=== PATIENT | male | born 1970 | race Caucasian/White ===

== ENCOUNTER 2019-10-20 10:22 | Outpatient (CLI) | payer BC, OTHER, SELFPAY ==
--- NOTE | 2019-10-20 | US_ITS ---
WS: [id number] RIGHT UPPER QUADRANT ULTRASOUND HISTORY: ELEVATED LIVER ENZYMES COMPARISON: 12/19/2012 Liver: 17.6 cm in length. Moderately enlarged liver. The entire liver is poorly visualized. There is marked attenuation from hepatic steatosis. Study is not adequate to exclude mass or bile duct dilatat ion. Gallbladder: Normally distended gallbladder with no stones or wall thickening. CBD: 3.0 mm Pancreas: Pancreas is not visualized well. Right kidney: 13.3 cm in length. Normal echogenicity with no mass or hydronephrosis. Aorta and IVC: Unremarkable. No ascites. US/US abdomen limited 66890 IMPRESSION: 1. Technically difficult RIGHT upper quadrant ultrasound. 2. Moderate hepatomegaly with severe hepatic steatosis. 3. Normal gallbladder.
== END 2019-10-20 10:23 | disposition home or self-care (01) ==
PROVIDERS: Family Provider Family Medicine; PCP Family Medicine; Visit Provider Nurse Practitioner Family
DX: K76.0 Fatty (change of) liver, not elsewhere classified (principal); R74.8 Abnormal levels of other serum enzymes

== ENCOUNTER 2021-10-02 09:12 | Outpatient (CLI) | payer OTHER, SELFPAY ==
[2021-10-01 07:07] VITALS: BP 149/99; PULSE 62; RESP 18; TEMP 36.9; O2SAT 95
[2021-10-02 07:07] VITALS: BP 162/95; PULSE 86; RESP 18; TEMP 36.9; O2SAT 99
[2021-10-02 09:37] VITALS: BMI 40.8
[2021-10-02 10:35] VITALS: BP 159/94; PULSE 61; RESP 16; TEMP 36.9; O2SAT 95
[2021-10-02 11:35] VITALS: BP 147/94; PULSE 63; RESP 18; TEMP 36.7; TEMP 36.8; O2SAT 97
== END 2021-10-02 09:13 | disposition home or self-care (01) ==
LOC: OPS 09:13
PROVIDERS: PCP Family Medicine; Visit Provider Nurse Practitioner
DX: U07.1 COVID-19 (principal)
CPT/HCPCS: 96365

== ENCOUNTER 2022-07-10 22:54 | Emergency (ER) | payer OTHER, SELFPAY ==
[2022-07-10 22:57] VITALS: BP 225/125; PULSE 96; RESP 18; TEMP 37.2; O2SAT 99; BMI 40.6
--- NOTE | 2022-07-10 23:07 | ECG_ITS ---
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 Measurements Intervals [place] Rate: 87 P: 63 OR: 155 QRS: 30 QRSD: 98 T: -8 QT: 387 QTc: 466 Interpretive Statements SINUS RHYTHM NONSPECIFIC ST & T-WAVE ABNORMALITY No previous ECG available for comparison Electronically Signed On 07-11-2022 19:27:12 CDT by Reddy Lyles M.D. [id number]
--- NOTE | 2022-07-10 23:16 | ED_ITS ---
HPI - General Adult General: Chief complaint: General Medical Stated complaint: High Blood Pressure Time Seen by Provider: 07/10/22 23:11 Source: patient Mode of arrival: ambulatory Limitations: no limitations History of Present Illness: 51-year-old male who has a history of hypertension he states he took lisinopril today and states he checked his blood pressure tonight and it was in the 200s. He states he became quite anxious and concerned over this he has no pain he denies headache he denies chest pain he denies any worsening improving factors. He denies any vomiting or diarrhea. Associated symptoms: Deny chest pain, dyspnea, headache(s), nausea, rash or vomiting Review of Systems Const: Denies: fever(s), chills, body aches or change in appetite Eyes: Denies: blurry vision or eye discomfort ENMT: Denies: throat pain or dental pain Card: Denies: chest pain Resp: Denies: dyspnea GI: Denies: abdominal pain, nausea, vomiting or diarrhea : Denies: dysuria Musc: Denies: neck pain or back pain Skin/Breast: Denies: rash Neuro: Denies: headache(s) Psych: Denies: depression Valentin/Lymph: Denies: easy bruising All/Imm: Denies: urticaria PFSH ED PFSH: Medical History (Updated 07/11/22 @ 00:00 by Lorin Justice MD) Hypertension Social History Smoking and tobacco status: never smoked Physical Exam Const: COMMON NORMALS: no acute distress, patient oriented x3 and healthy appearing HENMT: COMMON NORMALS: normocephalic and atraumatic HEAD & SCALP: normocephalic and atraumatic Eye: COMMON NORMALS: Equal, round and reactive pupils present and EOMs intact bilaterally PUPIL: Yes Equal, round and reactive pupils present Neck/C-Spine: COMMON NORMALS: full ROM and supple Chest: COMMONS NORMALS: normal inspection of the chest and normal palpation of entire chest wall Resp: COMMON NORMALS: normal respiratory effort, No retractions, No use of accessory muscles and clear to auscultation bilaterally AUSCULTATION: clear to auscultation bilaterally Cardio: COMMON NORMALS: regular rate, regular rhythm and No murmurs present (Cardio) RATE: regular rate RHYTHM: regular rhythm GI: COMMON NORMALS: Normal to inspection, nondistended, normoactive bowel sounds present, Soft to palpation, non-tender and no masses PALPATION: Yes Soft to palpation Extremity: COMMON NORMALS: normal to inspection and full ROM Neuro: COMMON NORMALS: patient oriented x3, moves all extremities and no focal motor deficits Psych: COMMON NORMALS: mental status grossly normal, Normal thought process present and cooperative THOUGHT PROCESS: Normal thought process present Skin: COMMON NORMALS: no rashes or lesions noted and no wounds GENERAL SKIN EXAM: no rashes or lesions noted Course Vital Signs: Vital signs: Vital Signs Temperature 99.0 F 07/10/22 22:57 Pulse Rate 62 07/11/22 00:04 Respiratory Rate 18 07/10/22 22:57 Blood Pressure 165/97 07/11/22 00:04 Pulse Oximetry 99 07/11/22 00:04 Oxygen Delivery Me thod 07/10/22 22:57 MDM - General Adult Medical Decision Making Patient presents here with hypertension his blood pressure here is improved blood work EKG are normal. We will place him on metoprolol and with his lisino pril he is to follow-up with PCP and return if worsening. Lab Data : 07/10/22 23:21 07/10/22 23:21 Laboratory Results WBC 5.7 10^3/uL (4.0-10.0) 07/10/22 23: RBC 5.08 10^6/uL (4.1-5.3) 07/10/22 23:21 Hgb 15.5 g/dL (11.7-16.6) 07/10/22 23: Hct 45.3 % (42.0-52.0) 07/10/22 23:21 MCV 89.2 fl (80-94) 07/10/22 23:21 MCH 30.5 pg (28.0-34.0) 07/10/22 23: MCHC 34.2 g/dL (30.0-36.0) 07/10/22 23:21 RDW 13.1 % (12.1-15.1) 07/10/22 23:21 Plt Count 127 10^3/cmm (130-400) L 07/10/22 23:21 MPV 13.1 fL (7.4-10.4) H 07/10/22 23:21 Neut % (Auto) 40.5 % 07/10/22 23:21 Lymph % (Auto) 45.2 % 07/10/22 23:21 Gaston % (Auto) 10.9 % 07/10/22 23:21 Eos % (Auto) 2.5 % 07/10/22 23:21 Baso % (Auto) 0.7 % 07/10/22 23:21 Neut # (Auto) 2.30 10^3/uL (1.8-7.7) 07/10/22 23:21 Lymph # (Auto) 2.6 10^3/uL (0.8-4.8) 07/10/22 23:21 Gaston # (Auto) 0.6 10^3/uL (0.2-0.9) 07/10/22 23:21 Eos # (Auto) 0.1 10^3/uL (0.0-0.8) 07/10/22 23:21 Baso # (Auto) 0.0 10^3/uL (0.0-0.1) 07/10/22 23:21 Nucleated RBC % (auto) 0 % 07/10/22 23:21 Nucleated RBCs # 0.0 /100WBC 07/10/22 23:21 Sodium 139 mmol/L (136-145) 07/10/22 23:21 Potassium 3.5 mmol/L (3.5-5.1) 07/10/22 23:21 Chloride 101 mmol/L (98-107) 07/10/22 23:21 Carbon Dioxide 26 mmol/L (22-29) 07/10/22 23:21 Anion Gap 15.5 (5-19) 07/10/22 23:21 BUN 10 mg/dL (6-20) 07/10/22 23:21 Creatinine 0.9 mg/dL (0.7-1.2) 07/10/22 23:21 GFR Calculation 89.7 mL/min (90-130) L 07/10/22 23:21 Glucose 130 mg/dL (65-115) H 07/10/22 23:21 Calculated Osmolality 289 mOsm/kg (285-295) 07/10/22 23:21 Calcium 9.3 mg/dL (8.5-10.5) 07/10/22 23:21 Total Bilirubin 0.5 mg/dL (0.15-1.2) 07/10/22 23:21 AST 33 U/L (0-40) 07/10/22 23:21 ALT 68 U/L (0-41) H 07/10/22 23:21 Alkaline Phosphatase 101 U/L (40-130) 07/10/22 23:21 Total Protein 7.8 g/dL (6.6-8.7) 07/10/22 23:21 Albumin 4.7 g/dL (3.5-5.2) 07/10/22 23:21 Globulin 3.1 g/dL (1.3-4.6) 07/10/22 23:21 EKG Data EKG 1: I personally reviewed and interpreted this EKG as follows: EKG interpretation date: 07/10/22 EKG interpretation time: 23:16 Interpretation: nsr hr [address] or t wave abnormalities qrs 98 qtc 431 Discharge Plan Discharge Patient Disposition: Home Clinical Impression: Hypertension Condition: Stable Prescriptions: New metoprolol succinate 25 mg capsule,sprinkle,ER 24hr 25 mg PO DAILY Qty: 30 0RF No Action lisinopril 10 mg tablet 10 mg PO BID ondansetron 4 mg tablet,disintegrating 4 mg PO Q8H PRN (Reason: nausea and vomiting) Qty: 14 0RF meclizine 12.5 mg tablet 12.5 mg PO BID PRN (Reason: dizziness) Qty: 14 0RF Discharge Orders: Discharge ED (Routine); Ordered 07/11/22 Ordered By: Lorin Justice Referrals: Sukhi Vo MD [Primary Care Provider] - 1-3 days Discharge Diet: Advance as tolerated Discharge Activity: Resume usual activity Patient Instructions: Hypertension (ED) Coding Level of Care Code ED Religious Healer for Chg Fwd Exam Comprehensive
[2022-07-10] MEDS: labetalol 5 mg/mL SDV 20mL 10 MG IVP (23:22)
[2022-07-10 23:27] LABS: Basophils % 0.7 %; Eosinophils # 0.1 10^3/uL (0.0-0.8); Eosinophils % 2.5 %; Hematocrit 45.3 % (42.0-52.0); Hemoglobin 15.5 g/dL (11.7-16.6); Lymphocytes # 2.6 10^3/uL (0.8-4.8); Lymphocytes % 45.2 %; Mean Corpuscular HGB Conc 34.2 g/dL (30.0-36.0); Mean Corpuscular Hemoglobin 30.5 pg (28.0-34.0); Mean Corpuscular Volume 89.2 fl (80-94); Mean Platelet Volume 13.1 fL (7.4-10.4); Monocytes # 0.6 10^3/uL (0.2-0.9); Monocytes % 10.9 %; Neutrophils % 40.5 %; Nucleated Red Blood Cells % 0 %; Platelet Count 127 10^3/cmm (130-400); Red Blood Count 5.08 10^6/uL (4.1-5.3); Red Cell Distribution Width 13.1 % (12.1-15.1); White Blood Count 5.7 10^3/uL (4.0-10.0)
[2022-07-10 23:48] LABS: Slide Review Slide Review Perform
[2022-07-10 23:51] LABS: Alanine Aminotransferase 68 U/L (0-41); Albumin Level 4.7 g/dL (3.5-5.2); Alkaline Phosphatase 101 U/L (40-130); Anion Gap 15.5 (5-19); Aspartate Amino Transferase 33 U/L (0-40); Blood Urea Nitrogen 10 mg/dL (6-20); Calcium 9.3 mg/dL (8.5-10.5); Carbon Dioxide 26 mmol/L (22-29); Chloride 101 mmol/L (98-107); Globulin 3.1 g/dL (1.3-4.6); Glomerular Filtration Rate 89.7 mL/min (90-130); Glucose 130 mg/dL (65-115); Osmolality Calculated 289 mOsm/kg (285-295); Potassium 3.5 mmol/L (3.5-5.1); Sodium 139 mmol/L (136-145); Total Bilirubin 0.5 mg/dL (0.15-1.2); Total Protein 7.8 g/dL (6.6-8.7)
[2022-07-11 00:04] VITALS: BP 165/97; PULSE 62; O2SAT 99
[2022-07-11] MEDS: LORazepam 1 mg Tablet PO (00:05)
[2022-07-11] MEDS: hyDRALAzine 20 mg/mL INJ 1 mL 10 MG IVP (00:05)
[2022-07-11 00:33] VITALS: BP 170/98; PULSE 74; O2SAT 98
== END 2022-07-11 00:30 | disposition home or self-care (01) ==
PROVIDERS: Emergency Provider Emergency Medicine; PCP Family Medicine
DX: I10 Essential (primary) hypertension (principal)
CPT/HCPCS: 80053; 85025; 93005; 96374; 96375; 99284; J0360; J3490